=== PATIENT | female | born 1960 | race Asian ===

== ENCOUNTER → 2018-09-25 | Outpatient (CLI) | payer OTHER ==
[~2018-09-25] VITALS: Ht 149.9 cm; Wt 49.4 kg
[~2018-09-25] MED LIST: ADENOSINE 42 MG in GIVE UN-DILUTED 0 ML IV STA
[2018-09-25 10:25] VITALS: BP 117/66
== END | disposition home or self-care (01) ==
LOC: XY 08:14
PROVIDERS: ATTEND Internal Medicine
DX: R07.89 Other chest pain (principal)
CPT/HCPCS: 78452; 93017; A9500; J0153

== ENCOUNTER → 2018-10-02 | Outpatient (CLI) | payer OTHER | END | disposition home or self-care (01) | LOC: XYW 11:00 | PROVIDERS: ATTEND Internal Medicine | DX: R07.89 Other chest pain (principal) | CPT/HCPCS: 93306 ==

== ENCOUNTER 2018-11-28 07:41 | Day surgery (SDC) | payer OTHER ==
[2018-11-24 11:07] LABS: Basophils # (auto) 0 uL; Basophils % (auto) 0.6 % (0.0-2.0); Eosinophils # (auto) 0.2 uL; Eosinophils % (auto) 3.5 % (0.0-7.0); Hematocrit 40.5 % (36.0-46.0); Lymphocytes # (auto) 1.5 uL; Lymphocytes % (auto) 32.7 % (10.0-50.0); Mean Corpuscular Hemoglobin 32.1 pg (28.0-32.0); Mean Corpuscular Hgb Conc. 34.4 g/dL (32.0-36.0); Mean Corpuscular Volume 93.2 fL (80.0-100.0); Monocytes # (auto) 0.3 uL; Monocytes % (auto) 7.3 % (0.0-12.0); Neutrophils # (auto) 2.6 uL; Neutrophils % (auto) 55.9 % (37.0-80.0); Nucleated Red Blood Cells % 0.1 %; Platelet Count (auto) 300 10^3/uL (140-450); Red Blood Cells 4.35 10^6/uL (4.0-5.20); Red Cell Distribution Width 13.2 % (11.8-14.3); White Blood Cell 4.6 10^3/uL (4.4-10.8)
[2018-11-24 11:19] LABS: INR 0.87 (0.9-1.15); Partial Thromboplastin Time 25.4 sec (23.64-32.05)
[2018-11-24 11:48] LABS: Potassium 4.3 mmol/L (3.5-5.1)
[2018-11-24 11:56] LABS: Albumin 3.8 g/dL (3.4-5.0); BUN/Creatinine Ratio 31.4; Bilirubin, Total 0.6 mg/dL (0.2-1.0); Calcium 8.7 mg/dL (8.5-10.1)
[~2018-11-28] VITALS: Ht 152.4 cm; Wt 49.9 kg
[~2018-11-28 07:41] MED LIST changes: -ADENOSINE 42 MG in GIVE UN-DILUTED 0 ML IV STA; +ASPI81TA27 PO; +DULA0.5I SC; +FEXO-38 PO; +FOLI1TAB6 PO; +METF-372 PO; +SIMV-13 PO; +TELM1TAB33 PO
[2018-11-28] MEDS ORDERED: LIDOCAINE 2%HCL (LOCAL ANESTH.) INJ 20ML MDV ONE (08:28)
[2018-11-28] MEDS ORDERED: IOHEXOL 350 MG/ML 100ML IJ ONE ×2 (08:28→09:22)
[2018-11-28] MEDS ORDERED: ANGIOMAX 250 MG VIAL IV ONE (08:38)
[2018-11-28] MEDS ORDERED: MIDAZOLAM HCL 1MG/1ML-2 ML VIAL ONE (08:38)
[2018-11-28] MEDS ORDERED: fentaNYL CITRATE 100 MCG/2 ML VL ONE (08:38)
[2018-11-28] MEDS ORDERED: SODIUM CHL 0.9% 50 ML ONE ×2 (08:39→09:14)
[2018-11-28] MEDS ORDERED: ADENOSINE 90 MG/30 ML INJ IV ONE (09:14)
== END 2018-11-28 11:55 | disposition home or self-care (01) ==
LOC: CATH 07:41
PROVIDERS: ATTEND Internal Medicine
DX: I25.10 Atherosclerotic heart disease of native coronary artery without angina pectoris (principal); I10 Essential (primary) hypertension; E78.00 Pure hypercholesterolemia, unspecified; E11.9 Type 2 diabetes mellitus without complications; Z79.82 Long term (current) use of aspirin; Z79.899 Other long term (current) drug therapy
CPT/HCPCS: 36415; 80053; 85025; 85610; 85730; 93458; C1760; C1769; C1894; J0153; J0583; J1644; J2250; J3010; J7030; Q9967; 99152